=== PATIENT | male | born 1965 | race Caucasian/White ===

== ENCOUNTER 2017-03-07 07:34 | Emergency (ER) | payer SELFPAY ==
[~2017-03-07] VITALS: Ht 182.9 cm; Wt 90.0 kg
[2017-03-07] MEDS ORDERED: ASPI-556 PO (07:50)
[2017-03-07 12:08] VITALS: BP 150/94
== END 2017-03-07 12:32 | disposition home or self-care (01) ==
LOC: EMS 07:37
DX: S60.021A Contusion of right index finger without damage to nail, initial encounter (principal); S60.011A Contusion of right thumb without damage to nail, initial encounter; R07.89 Other chest pain; R51 Headache; M54.2 Cervicalgia; M54.6 Pain in thoracic spine; F17.290 Nicotine dependence, other tobacco product, uncomplicated; V29.49XA Motorcycle driver injured in collision with other motor vehicles in traffic accident, initial encounter; Y93.89 Activity, other specified; Y92.488 Other paved roadways as the place of occurrence of the external cause; Y99.8 Other external cause status
CPT/HCPCS: 70450; 71250; 72125; 99284